=== PATIENT | female | born 1955 | race Caucasian/White ===

== ENCOUNTER → 2016-08-28 | Outpatient (CLI) | payer OTHER ==
[~2016-08-28] MED LIST: ASCO-296 PO; CALC-587 PO; CHOL400T23 PO; FISH1CAP29 PO; MAGN84TA4 PO; ZINC15TA2 PO
== END ==
LOC: WC.BC 16:20
DX: Z12.31 Encounter for screening mammogram for malignant neoplasm of breast (principal); Z80.3 Family history of malignant neoplasm of breast
CPT/HCPCS: 77063; G0202